=== PATIENT | male | born 1985 | race African-American/Black ===

== ENCOUNTER 2019-05-26 18:18 | Emergency (ER) | payer BC ==
[2019-05-26] MEDS ORDERED: Sodium Chloride 0.9% 2.5 ML Syringe FLUSH PRN (19:10)
[2019-05-26] MEDS ORDERED: Sodium Chloride 0.9% 10 ML Syringe FLUSH PRN (19:10)
[2019-05-26] MEDS ORDERED: Sodium Chloride 0.9% 1,000 ML IV ONE (19:10)
[2019-05-26 20:11] LABS: BLOOD UREA NITROGEN,BUN 16 mg/dL (7.0-18.0); CARBON DIOXIDE,CO2 24.8 mmol/L (21.0-32.0); CHLORIDE,CL 101 mmol/L (98-107); GLUCOSE RANDOM 121 mg/dL (74-106); POTASSIUM,K 3.5 mmol/L (3.5-5.1); SODIUM,NA 136 mmol/L (136-148)
--- NOTE | 2019-05-26 20:40 | EDM.PDOC ---
ED HPI GENERAL MEDICAL PROBLEM - General Chief Complaint: Gastrointestinal Problem Stated Complaint: STOMACHACHE DIARRHEA Time Seen by Provider: 05/26/19 21:13 Source of Information: Reports: Patient History Limitations: Reports: No Limitations - History of Present Illness INITIAL COMMENTS - FREE TEXT/NARRATIVE: HISTORY AND PHYSICAL: History of present illness: Patient is a 33-year-old male presents to the ED with complaint of blood in his stool. Patient states he started having diarrhea and lower abdominal cramping yesterday. Today he states he is having bright red blood mixed in with his loose stools. He states abdominal pain comes and goes and he will have a bowel movement after every lower abdominal cramp. He reports some nausea. denies fevers, chills, vomiting, chest pain, cough, shortness of breath, weight loss. He denies significant past medical or surgical history. Denies recent travel outside of country. Vital signs and nursing assessment reviewed by me. Review of systems: As per history of present illness and below otherwise all systems reviewed and negative. Past medical history: As per history of present illness and as reviewed below otherwise noncontributory. Surgical history: As per history of present illness and as reviewed below otherwise noncontributory. Social history: No reported history of drug or alcohol abuse. Family history: As per history of present illness and as reviewed below otherwise noncontributory. Physical exam: General: Patient sitting comfortably in no acute distress and nontoxic appearing HEENT: Atraumatic, normocephalic, pupils reactive, negative for conjunctival pallor or scleral icterus, mucous membranes moist, throat clear, neck supple, nontender, trachea midline. No meningeal signs. Lungs: Clear to auscultation, breath sounds equal bilaterally, chest nontender. Heart: S1S2, regular, negative for clicks, rubs, or overt murmur. Abdomen: Soft, nondistended, nontender. Negative for masses or hepatosplenomegaly. Negative for costovertebral tenderness. No rigidity, rebound , guarding. Pelvis: Stable nontender. Genitourinary: Deferred. Rectal: Hemoccult positive Extremities: Atraumatic, negative for cords or calf pain. Neurovascular unremarkable. Neuro: Awake, alert, oriented. Cranial nerves II through XII unremarkable. Cerebellum unremarkable. Motor and sensory unremarkable throughout. Exam nonfocal. Notes: Patient labs reviewed and show normal WBC and hemoglobin and hematocrit. Stool studies were sent and will result in a few days. Patient was given 1g Azithromycin in ED. Diagnostics: CBC, CMP, Stool culture, stool WBCs Therapeutics: 1L NS IV 1g Azithromycin PO Prescriptions: none Impression: Bloody diarrhea Plan: Follow up with primary care provider and general surgery Return to ED as needed as discussed Please note that cultures were reviewed by me on 05/31/2019 and positive for salmonella. Calls were attempted to patient by nursing staff on 05/29/2019 but unable to reach patient. I did send in Cipro 500mg BID x 7 days and nursing will attempt to call patient again today. He does have follow up with general surgery on 06/11/2019. Definitive disposition and diagnosis as appropriate pending reevaluation and review of above. Abdominal Pain Score (Numeric/FACES): 5 - Related Data Allergies Allergy/AdvReac Type Severity Reaction Status Date / Time No Known Allergies Allergy Verified 05/26/19 18:43 Home Meds: Home Meds Ciprofloxacin HCl [Cipro] 500 mg PO BID 7 Days #14 tablet 05/31/19 [Rx] Past Medical History - Past Health History Medical/Surgical History: Denies Medical/Surgical History - Infectious Disease History Infectious Disease History: Reports: None Social & Family History - Family History Family Medical History: Noncontributory - Tobacco Use Smoking Status *Q: Never Smoker - Caffeine Use Caffeine Use: Reports: Coffee, Energy Drinks, Tea - Recreational Drug Use Recreational Drug Use: No ED ROS GENERAL - Review of Systems Review Of Systems: Comprehensive ROS is negative, except as noted in HPI. ED EXAM, GI/ABD - Physical Exam Exam: See Below (see dictation) Course - Vital Signs Last Recorded V/S: Last Vital Signs Temp 101.8 F H 05/26/19 21:18 Pulse 94 05/26/19 21:18 Resp 18 05/26/19 21:18 BP 110/64 05/26/19 21:18 Pulse Ox 97 05/26/19 21:18 - Orders/Labs/Meds Labs: Laboratory Tests 05/26/19 05/26/19 Range/Units 19:42 19:42 WBC 7.06 (4.0-11.0) K/uL RBC 5.24 (4.50-5.90) M/uL Hgb 16.0 (13.0-17.0) g/dL Hct 45.7 (38.0-50.0) % MCV 87.2 (80.0-98.0) fL MCH 30.5 (27.0-32.0) pg MCHC 35.0 (31.0-37.0) g/dL RDW Std Deviation 45.7 (28.0-62.0) fl RDW Coeff of Padmini 14 (11.0-15.0) % Plt Count 62 L (150-400) K/uL MPV 11.70 (7.40-12.00) fL Neut % (Auto) 80.6 H (48.0-80.0) % Lymph % (Auto) 7.2 L (16.0-40.0) % [place] % (Auto) 11.8 (0.0-15.0) % Eos % (Auto) 0.3 (0.0-7.0) % Baso % (Auto) 0.1 (0.0-1.5) % Neut # (Auto) 5.7 (1.4-5.7) K/uL Lymph # (Auto) 0.5 L (0.6-2.4) K/uL [place] # (Auto) 0.8 (0.0-0.8) K/uL Eos # (Auto) 0.0 (0.0-0.7) K/uL Baso # (Auto) 0.0 (0.0-0.1) K/uL Nucleated RBC % 0.0 /100WBC Nucleated RBCs # 0 K/uL Sodium 136 (136-148) mmol/L Potassium 3.5 (3.5-5.1) mmol/L Chloride 101 (98-107) mmol/L Carbon Dioxide 24.8 (21.0-32.0) mmol/L BUN 16 (7.0-18.0) mg/dL Creatinine 1.5 H (0.8-1.3) mg/dL Est Cr Clr Drug Dosing 68.04 mL/min Estimated GFR (MDRD) > 60.0 ml/min Glucose 121 H (74-106) mg/dL Calcium 8.7 (8.5-10.1) mg/dL Total Bilirubin 1.2 H (0.2-1.0) mg/dL AST 49 H (15-37) IU/L ALT 71 H (14-63) IU/L Alkaline Phosphatase 102 (46-116) U/L Total Protein 7.8 (6.4-8.2) g/dL Albumin 3.6 (3.4-5.0) g/dL Globulin 4.2 H (2.6-4.0) g/dL Albumin/Globulin Ratio 0.9 (0.9-1.6) Meds: Medications Discontinued Medications Generic Name Dose Route Start Last Admin Trade Name Freq PRN Reason Stop Dose Admin Azithromycin 1,000 mg 05/26/19 21:17 05/26/19 21:21 Zithromax PO 05/26/19 21:18 1,000 mg NOW STA Administration Sodium Chloride 1,000 mls @ 999 mls/hr 05/26/19 19:10 05/26/19 19:48 Normal Saline IV 05/26/19 20:10 999 mls/hr STAT ONE Administration Sodium Chloride 10 ml 05/26/19 19:10 Saline Flush FLUSH ASDIRECTED PRN Keep Vein Open Sodium Chloride 2.5 ml 05/26/19 19:10 Saline Flush FLUSH ASDIRECTED PRN Keep Vein Open Departure - Departure Time of Disposition: 21:13 Disposition: Home, Self-Care 01 Condition: Good Clinical Impression: Bloody stools - Discharge Information Prescriptions: Ciprofloxacin HCl [Cipro] 500 mg PO BID 7 Days #14 tablet Instructions: Bloody Diarrhea Referrals: PCP,Not In Area [Primary Care Provider] - Forms: ED Department Discharge Additional Instructions: The following information is given to patients seen in the emergency department who are being discharged to home. This information is to outline your options for follow-up care. We provide all patients seen in our emergency department with a follow-up referral. The need for follow-up, as well as the timing and circumstances, are variable depending upon the specifics of your emergency department visit. If you don't have a primary care physician on staff, we will provide you with a referral. We always advise you to contact your personal physician following an emergency department visit to inform them of the circumstance of the visit and for follow-up with them and/or the need for any referrals to a consulting specialist. The emergency department will also refer you to a specialist when appropriate. This referral assures that you have the opportunity for follow-up care with a specialist. All of these measure are taken in an effort to provide you with optimal care, which includes your follow-up. Under all circumstances we always encourage you to contact your private physician who remains a resource for coordinating your care. When calling for follow-up care, please make the office aware that this follow-up is from your recent emergency room visit. If for any reason you are refused follow-up, please contact the [facility] at and asked to speak to the emergency department charge nurse. [facility] [address] [place] [id number] [address] [facility] - General Surgery Professional Building [address] [place] [address], [address] [place] [address] Follow up with primary care provider and general surgery Return to ED as needed as discussed Sepsis Event Note - Evaluation Sepsis Screening Result: No Definite Risk - Focused Exam Date Exam was Performed: 05/31/19 Time Exam was Performed: 10:59
[2019-05-26] MEDS ORDERED: Azithromycin 250 MG Tab PO STA (21:17)
== END 2019-05-26 21:32 | disposition home or self-care (01) ==
LOC: MW.ED 18:18
DX: K92.1 Melena (principal); R19.7 Diarrhea, unspecified
CPT/HCPCS: 36415; 80053; 83630; 85025; 87045; 87046; 87899; 96360; 99284; A9270; J7030; 99283

== ENCOUNTER 2019-06-11 07:09 | Day surgery (SDC) | payer BC ==
[~2019-06-11 07:09] MED LIST: Lactated Ringers 1,000 ML IV SCH
--- NOTE | 2019-06-11 07:33 | PCM.PREANE ---
Preanesthetic Assessment - Anesthesia/Transfusion/Family Hx Anesthesia History: No Prior Anesthesia Family History of Anesthesia Reaction: No Transfusion History: No Prior Transfusion(s) Intubation History: Unknown - Review of Systems General: No Symptoms Pulmonary: No Symptoms Cardiovascular: No Symptoms Gastrointestinal: Abdominal Pain, Hematochezia Neurological: No Symptoms Other: Reports: None - Physical Assessment Vital Signs: Last Vital Signs Temp 36.2 C 06/11/19 07:15 Pulse 82 06/11/19 07:15 Resp 18 06/11/19 07:15 BP 122/72 06/11/19 07:15 Pulse Ox 99 06/11/19 07:15 Height: 5 ft 7 in Weight: 63.957 kg ASA Class: 1 Mental Status: Alert & Oriented x3 Airway Class: Mallampati = 1 Dentition: Reports: Normal Dentition Thyro-Mental Finger Breadths: 3 Mouth Opening Finger Breadths: 3 ROM/Head Extension: Full Lungs: Clear to Auscultation, Normal Respiratory Effort Cardiovascular: Regular Rate, Regular Rhythm - Allergies Allergies/Adverse Reactions: Allergies Allergy/AdvReac Type Severity Reaction Status Date / Time No Known Allergies Allergy Verified 06/07/19 15:29 - Blood Blood Available: No - Anesthesia Plan Pre-Op Medication Ordered: None - Acknowledgements Anesthesia Type Planned: MAC Pt an Appropriate Candidate for the Planned Anesthesia: Yes Alternatives and Risks of Anesthesia Discussed w Pt/Guardian: Yes Pt/Guardian Understands and Agrees with Anesthesia Plan: Yes PreAnesthesia Questionnaire - Past Health History Medical/Surgical History: Denies Medical/Surgical History Gastrointestinal History: Reports: Other (See Below) Other Gastrointestinal History: current rectal bleeding - Infectious Disease History Infectious Disease History: Reports: None - Past Surgical History Head Surgeries/Procedures: Reports: None - SUBSTANCE USE Smoking Status *Q: Never Smoker Recreational Drug Use History: No - HOME MEDS Home Medications: Home Meds . [No Known Home Meds] 06/07/19 [History] - CURRENT (IN HOUSE) MEDS Current Meds: Current Medications Lactated Ringer's (Ringers, Lactated) 1,000 mls @ 125 mls/hr IV ASDIRECTED [facility]
[2019-06-11] MEDS ORDERED: Propofol 200 MG/20 ML SDV ONE ×3 (07:56→08:50)
[2019-06-11] MEDS ORDERED: Lidocaine 2% 5 ML SDV ONE (07:56)
--- NOTE | 2019-06-11 09:07 | PCM.OPNOTE ---
- General Post-Op/Procedure Note Date of Surgery/Procedure: 06/11/19 Operative Procedure(s): egd w bx. attempted colonoscopy Findings: see [id number] Pre Op Diagnosis: BRBPR and abd pain Post-Op Diagnosis: Same Anesthesia Technique: Moderate Sedation Primary Surgeon: Lane Mahoney Pathology: egd bx Complications: None Condition: Good
--- NOTE | 2019-06-11 09:34 | PCM.POSTAN ---
POST ANESTHESIA ASSESSMENT - MENTAL STATUS Mental Status: Alert, Oriented - VITAL SIGNS Vital Signs: Last Vital Signs Temp 36.2 C 06/11/19 07:15 Pulse 66 06/11/19 09:28 Resp 20 06/11/19 09:28 BP 103/69 06/11/19 09:28 Pulse Ox 100 06/11/19 09:28 - RESPIRATORY Respiratory Status: Respiratory Rate WNL, Airway Patent, O2 Saturation Stable - CARDIOVASCULAR CV Status: Pulse Rate WNL, Blood Pressure Stable - GASTROINTESTINAL GI Status: No Symptoms - PAIN Pain Score: 0 - POST OP HYDRATION Hydration Status: Adequate & Stable - OBSERVATIONS Free Text/Narrative:: No anesthesia problems
--- NOTE | 2019-06-11 10:03 | PCM48HPAN ---
Post Anesthesia Note - EVALUATION WITHIN 48HRS OF ANESTHETIC Vital Signs in Normal Range: Yes Patient Participated in Evaluation: Yes Respiratory Function Stable: Yes Airway Patent: Yes Cardiovascular Function Stable: Yes Hydration Status Stable: Yes Pain Control Satisfactory: Yes Nausea and Vomiting Control Satisfactory: Yes Mental Status Recovered: Yes Vital Signs: Last Vital Signs Temp 36.0 C 06/11/19 09:36 Pulse 68 06/11/19 09:36 Resp 14 06/11/19 09:36 BP 109/68 06/11/19 09:36 Pulse Ox 100 06/11/19 09:36 - COMMENTS/OBSERVATIONS Free Text/Narrative:: No anesthesia problems
--- NOTE | 2019-06-11 11:52 | OR ---
SURGEON: Lane Mahoney MD DATE OF PROCEDURE: 06/11/2019 PREOPERATIVE DIAGNOSES: Bright red blood per rectum and abdominal pain. POSTOPERATIVE DIAGNOSES: Esophagogastroduodenoscopy diagnoses are gastroesophageal reflux disease and gastritis. Colonoscopy diagnosis is unsuccessful colonoscopy from unacceptable bowel prep. DESCRIPTION OF PROCEDURE: EGD: The patient was taken to the endoscopy room, and with the [employer] MANAGER, Diprivan was administered. A well-lubricated EGD scope was gently inserted through the oropharynx, down the esophagus, passing through the gastroesophageal junction, into the stomach. The mucosa was examined upon the passage. Any etiology will be noted. Once in the stomach, we continued to advance to the distal antrum, passed through the pylorus into the second portion of the duodenum. Again, the mucosa was examined for any abnormality and etiology. The scope was then retrieved back to the stomach and then retroflexed to look at the fundus of the stomach. If a biopsy was indicated, we will biopsy the antrum, body, and gastroesophageal junction. The air will be sucked out while the scope is retrieved to reduce the patient's discomfort. The patient tolerated the procedure well. There were no intraoperative complications. Dr. Mahoney was present through the whole procedure. Prior to surgery, a time-out had been called, the patient identified, procedure identified and antibiotic administered. FINDINGS: EGD findings: 1. The patient was easily sedated with [employer] MANAGER and Diprivan, the patient is soundly snoring. 2. Oropharynx and proximal esophagus are free of disease, stricture, or inflammation. Distal esophagus at GE junction at 40 shows moderate amount of salmon-colored change, consistent with acid reflux. The patient also has a couple of inflammation at the mid esophagus, concern about Hunter esophagitis. Stomach rugae are normal in appearance, but mucosa is very friable, even touching make it bleed. The stomach rugae and the mucosa are quite inflamed, consistent with gastritis. Duodenum is grossly normal. Retroflexed look at the fundus of stomach, there is no hiatal hernia. Biopsy done at antrum, body, GE junction at 40 and sucked out the gas while scope pulling. At the antrum area, there are two areas with ulcer. It is not bleeding ulcer, but the mucosa is ulcerated, two areas. One area was biopsied at the level of the antrum. Throughout the whole study, there is no food or bile observed, but there is azam ulcer, two of them, at the antrum. Colonoscopy findings: 1. The patient is easily sedated with [employer]OURCE MANAGER and Diprivan, the patient is soundly snoring. 2. Bowel prep is unacceptable with soft stool, semi-formed stool from the rectum continuing upwards all the way to 60. Colonoscopy attempted to 60 and stopped because it just cannot proceed this azam solid stool. The stool was yellow in color. No blood observed and cannot observe anything, although advanced the scope. 50% to 60% of the mucosa covered with a pool of stool despite constant irrigation. Colonoscopy aborted. The patient will need to return in 6 months for both EGD and colonoscopy. EGD is for the inflammation. Colonoscopy is unsuccessful, and we will also put the patient on 20 mg p.o. omeprazole for 6 weeks with one refill. JAS MULLIGAN /[id number]
== END 2019-06-11 10:38 | disposition home or self-care (01) ==
LOC: MW.SDS 07:09
PROVIDERS: ATTEND Surgery
DX: K21.0 Gastro-esophageal reflux disease with esophagitis (principal); K29.00 Acute gastritis without bleeding; K29.50 Unspecified chronic gastritis without bleeding
CPT/HCPCS: 43239; 45330; J2001; J2704; J7120

== ENCOUNTER 2022-05-05 15:10 | Emergency (ER) | payer SELFPAY ==
[2022-05-05] MEDS ORDERED: Acetaminophen 325 MG Tab PO ONE (15:20)
[2022-05-05] MEDS ORDERED: Ibuprofen 800 MG Tab PO ONE (15:20)
[2022-05-05] MEDS ORDERED: Acetaminophen 500 MG Tab PO ONE (15:32)
[2022-05-05 16:11] LABS: CORONAVIRUS COVID-19 NAA NEGATIVE (NEGATIVE); INFLUENZA A NAA NEGATIVE (NEGATIVE); INFLUENZA B NAA NEGATIVE (NEGATIVE); RESPIRATORY SYNCYTIAL VIR NAA POSITIVE (NEGATIVE)
[2022-05-05] MEDS ORDERED: Albuterol/Ipratropium 3.0-0.5 MG/3 ML Neb Soln NEB ONE (16:14)
[2022-05-05] MEDS ORDERED: Lidocaine 5% 700 MG Patch TOP ONE (17:54)
== END 2022-05-05 18:06 | disposition home or self-care (01) ==
LOC: MW.ED 15:10
DX: R50.9 Fever, unspecified (principal); B97.4 Respiratory syncytial virus as the cause of diseases classified elsewhere; Z20.822 Contact with and (suspected) exposure to COVID-19
CPT/HCPCS: 0241U; 71045; 99284; A9270; J7620-GY